=== PATIENT | female | born 1960 | race Caucasian/White ===

== ENCOUNTER 2017-03-31 18:50 | Inpatient (IN) | payer BC ==
--- NOTE | ~2017-03-31 | DS ---
Unit #: [id number] #: [id number] Patient: MARCIA DOMÍNGUEZ [id number] [place] [address] [id number] MR#: [id number] NAME: MARCIA DOMÍNGUEZ ROOM: [facility] Age: 56 Sex: F Admission Date: 03/31/2017 : 1960 Discharge Date: 04/04/2017 Attending Physician: Jaylon Domingo M.D. Primary Care Physician: Jimenez Ferris Jr., M.D. DISCHARGE SUMMARY REASON FOR ADMISSION Opioid dependency, amphetamine abuse, and severe depression, moderate range. DIAGNOSTIC STUDIES PERTINENT LABORATORY DATA: The patient had a routine blood work which showed an elevated glucose of 169. Otherwise normal. CBC was within normal parameters with the exception of the MCH of 27.1. Urine tox was positive for benzos and marijuana. Urinalysis showed 0.2 urobilinogen, but otherwise negative for any aberration. HOSPITAL COURSE The patient was admitted for safety and stabilization for combinations of opioid dependency as well as severe depression. The patient has had vague suicidal ideation upon admission and seems to seem to have improved very quickly. The patient was placed on the COWS protocol for opiate detox and tolerating it well. She had symptoms of a very mild category in terms of aches, pains, upset stomach, poor energy, sleep disturbance, and nothing profound. The patient was on home dose of Zoloft which was increased to 200 mg daily to better acclimate her mood needs. The patient was also given Colace 100 mg twice a day because of constipation complaints. Overall, in the course of hospitalization, the patient improved. She went from being very tearful to very calm, appropriate with good eye contact. She was much more goal and future oriented to be home for her family. She still had significant losses in her life, but she needs to deal with, and she has open to following up with community resources in her home especially for therapy. Information are being provided by social media specialist here in this hospital. The patient tolerated the medication changes well without issues. She had also been prescribed trazodone 100 mg at bedtime as needed for sleep while she was here in the hospital. At the time of discharge, it was felt the patient had reached maximum benefit from inpatient admission. She was not having any suicidal ideation or any active withdrawal symptoms, and she was appropriate for release. DISCHARGE DIAGNOSES 1. Opiate dependence with withdrawal. 2. Other stimulant abuse. 3. Major depressive disorder, recurrent, moderate. DISCHARGE FOLLOWUP Wait to go home to her mother's home. Discontinue medications Zoloft 200 mg daily for depression and anxiety. Also, follow up with plans for the patient to go to communities, psych and therapy resources in her home area. CONDITION AT DISCHARGE Unit #: [id number] #: [id number] Patient: MARCIA DOMÍNGUEZ Improved. PROGNOSIS Moderate (1) ___. DISCHARGE DIET Regular. DISCHARGE ACTIVITY As tolerated with sobriety encouraged. Dictated by... Jaylon Domingo M.D. BRIANNA/zhao TD: 04/04/2017 12:05 JOB #: [id number] DISCHARGE SUMMARY Page 1 of 1 X Jaylon Domingo MD X DISCHARGE SUMMARY
--- NOTE | ~2017-03-31 | HP ---
Unit #: [id number] #: [id number] Patient: MARCIA DOMÍNGUEZ [id number] [place] [address] [id number] I MR#: [id number] NAME: MARCIA DOMÍNGUEZ ROOM: [facility] Age: 56 Sex: F Admission Date: 03/31/2017 : 1960 Attending Physician: Jaylon Domingo M.D. Admitting Physician: Jaylon Domingo M.D. Primary Care Physician: Jimenez Ferris Jr., M.D. HISTORY AND PHYSICAL HISTORY OF PRESENT ILLNESS The patient is a 56-year-old female who states that she is here to detox from opiates. PAST MEDICAL HISTORY Significant for hypertension. PAST SURGICAL HISTORY None. ALLERGIES None. SOCIAL HISTORY Positive for smoking, opiates and methamphetamine. FAMILY HISTORY Noncontributory. REVIEW OF SYSTEMS CONSTITUTIONAL: No fever or chills. HEENT: Denies any sore throat, ear pain or runny nose. CARDIOVASCULAR: Denies chest pain, irregular heart rhythm or palpitations. CHEST: Denies shortness of breath or cough. No hemoptysis. GASTROINTESTINAL: Denies nausea, vomiting, diarrhea or chronic constipation. ENDOCRINE: Denies history of increased thirst or urination. No recent significant weight loss or gain. GENITOURINARY: Denies dysuria, frequency, or hematuria. SKIN: Denies any rashes. HEMATOLOGIC: Denies history of increased bleeding or bruising. MUSCULOSKELETAL: Denies any hot, swollen joints. No generalized muscle pain. NEUROLOGIC: Denies problems with vision or speech. No frequent, severe headaches. No numbness, tingling or weakness in any extremities. Denies loss of bladder or bowel control. CURRENT MEDICATIONS Zoloft 100 mg p.o. daily. PHYSICAL EXAMINATION GENERAL: Alert, oriented, in no acute distress. VITAL SIGNS: Temperature 98, heart rate 80, respirations 16, blood Unit #: [id number] #: [id number] Patient: MARCIA DOMÍNGUEZ pressure 158/91. HEIGHT: 5 feet 6 inches. WEIGHT: 145 pounds. SKIN: Warm and dry without rash or lesion. Tattoos to the right foot. Scab to the left lower extremity. HEENT: Normocephalic. TMs not viewed. Oral and nasal passages clear. Conjunctivae clear. PERRLA. EOMs intact. NECK: Supple without lymphadenopathy or thyromegaly. HEART: Regular rate and rhythm without murmur. LUNGS: Clear. ABDOMEN: Soft, nontender, without masses or hepatosplenomegaly. : Not done. EXTREMITIES: No evidence of cyanosis, clubbing or edema. Moves all without focal deficit. NEUROLOGICAL: Grossly within normal limits. Cranial Nerves: II: Visual garnett are intact. III, IV AND : Extraocular movements are intact. Pupils are equal, round and reactive to light. V: Facial sensation is grossly normal. VII: Facial movements and expression are normal. VIII: Auditory acuity grossly intact. IX, X: Uvula is midline. Phonation is normal. XI: Patient shrugs shoulders and turns head normally. XII: Tongue protrudes in the midline. Sensory and Motor Function: Sensory and motor sensation is grossly normal. Motor: moves all extremities well. Coordination: Gait is normal. Deep Tendon Reflexes: Intact. IMPRESSION Psychiatric admission. RECOMMENDATIONS PSYCHIATRIC: Per psychiatrist. MEDICAL: No contraindications to participate in facility's activities. MEDICAL PROGNOSIS Good. Dictated by... Dee Inman/jarvis TD: 04/01/2017 20:41 JOB #: [id number] Unit #: [id number] #: [id number] Patient: MARCIA DOMÍNGUEZ HISTORY AND PHYSICAL Page 1 of 1 X Ashley Marcano APR X HISTORY AND PHYSICAL
--- NOTE | ~2017-03-31 | PA ---
Unit #: [id number] #: [id number] Patient: MARCIA DOMÍNGUEZ [id number] [place] [address] [id number] I MR#: [id number] NAME: MARCIA DOMÍNGUEZ ROOM: P201 Age: 56 Sex: F Admission Date: 03/31/2017 : 1960 Date of Assessment: Attending Physician: Jaylon Domingo M.D. Admitting Physician: Jaylon Domingo M.D. Primary Care Physician: Jimenez Ferris Jr., M.D. PSYCHIATRIC ASSESSMENT LOCATION [facility] [address], room [address], bed #1. INFORMANTS The patient and chart, both seem reliable. CHIEF COMPLAINT "I gotta stop using drugs per my family." HISTORY OF PRESENT ILLNESS This is a 56-year-old white female with a longstanding history of polysubstance abuse going back 30+ years. The patient's primary drug of choice is opiates with occasional amphetamines, Xanax use varied depending on day to day, but opiates are consistent every day and had been that way for years. The patient has been through subtherapeutic withdrawal in the past, but has never actually been treated for according to her and the patient is very tearful, depressed/various losses in her life including the of her nephew and her brother because of drugs. She reports that she wants to get off the drugs for her family. No active SI now, but she does have history of intermittent SI on a chronic nature. The patient to her room, but was pleasant and cooperative during the interview process. The patient denied any issues with alcohol. Denies any issues of significant withdrawal symptoms in terms of seizures. The patient is currently complaining of issues of aches and pains. Feeling depressed, anxious, tremors, diaphoretic, upset stomach. PAST PSYCHIATRIC HISTORY The patient is on Zoloft for depression by an outpatient psychiatrist in her hometown. Has never been in psychiatric care, which the patient refuses, no history of true suicidal actions, has chronic intermittent SI. No issues with any psychosis. FAMILY HISTORY Significant for widespread chemical dependency issues, issues as noted above. SOCIAL HISTORY The patient is and has no children. Currently living with her mother. She is unemployed, but is living with mom because of the foreclosure. MEDICAL HISTORY Nothing acute or chronic. Unit #: [id number] #: [id number] Patient: MARCIA DOMÍNGUEZ MEDICATION HISTORY Zoloft 150 mg daily by mouth. ALLERGIES No known drug allergies. SUBSTANCE ABUSE HISTORY As noted above. MENTAL STATUS EXAMINATION General appearance; this is a limitedly groomed white female, appears older than stated age. Fairly cooperative, responsive in her process with limited eye contact. Speech was clear and coherent, normal prosody. Mood was depressed with labile affect. Thought process and content were grossly organized and linear. No overt evidence of psychosis. No active SI at this time, but there was evidence of hopelessness. The patient's memory was grossly intact. Associations were normal. Cognitive function was at baseline. Alert and oriented x4. Insight and judgment are poor. ASSETS AND LIABILITIES Assets: Supportive through family and is employed. Liabilities include ongoing substance abuse, living at home with family. No previous exposure to detox process. ADMITTING DIAGNOSES 1. Opioid dependency with withdrawal. 2. Amphetamine abuse. 3. Xanax abuse, major depressive disorder, moderate. PSYCHIATRIC PLAN Continue the patient's admission for safety and stabilization for ongoing issues with detox needs especially from opiates with symptoms as noted above. We will continue the patient on opioid protocol as well as a CIWA protocol given her frequent use of Xanax as the patient's usage is unclear situation. We will also increase Zoloft to 200 mg to better augment her mood issues in terms of treatment. Treatment goals will be resolution of symptoms in a safe controlled environment. Monitor closely her best care. Discharge planning will most likely involve community resources at home area if not residential treatment if applicable. ESTIMATED LENGTH OF STAY Approximately 4 to 5 days depending on the patient's progress and response to treatment. Dictated by... Jaylon Domingo M.D. BRIANNA/nish TD: 04/02/2017 05:52 JOB #: [id number] Unit #: [id number] #: [id number] Patient: MARCIA DOMÍNGUEZ PSYCHIATRIC ASSESSMENT Page 1 of 1 X Jaylon Domingo MD PSYCHIATRIC ASSESSMENT
--- NOTE | ~2017-03-31 | PN ---
Unit #: [id number] #: [id number] Patient: MARCIA DOMÍNGUEZ [id number] [facility] [address] [place] [address] [id number] I MR#: [id number] NAME: MARCIA DOMÍNGUEZ ROOM: P201 Age: 56 Sex: F Admission Date: 03/31/2017 : 1960 Attending Physician: Jaylon Domingo M.D. Admitting Physician: Jaylon Domingo M.D. Primary Care Physician: Jimenez Ferris Jr., M.D. [facility] PROGRESS NOTES DATE 04/03/2017 SUBJECTIVE UPDATE This is a 56-year-old female here with ongoing issues with detox and significant depression. Patient continues to report detox symptoms of being fairly mild, complaining of minor GI upset, sleep disturbance, aches and pains but no tachycardia, no diaphoresis, no tremor today. Her depression is still present with still vague SI, no plan today and she was less tearful. Patient seems to be tolerating medication and is working on ambulation and social interactions more according to staff. MENTAL STATUS EXAMINATION General appearance is a moderately groomed white female improving responsiveness to interview process. Eye contact is still somewhat limited. Patient was less psychomotor agitated today. Speech was clear and coherent. Mood was depressed with constricted affect but improving. Thought process and content were grossly organized and linear. No overt evidence of psychosis. No SI is present but improving. No active plan. Patient's memory was grossly intact. Associations were normal. Cognitive functioning was at baseline. Insight and judgement is limited by improving. RECOMMENDATIONS Will continue patient's admission for ongoing issues with opiate detox and depression. Patient's suicidal ideation is improving but still present. Will need more time for stabilization. May consider augmenting Zoloft with additional medications if necessary. Patient also complained of constipation today which will provide Colace for her to help as a stool softener. Will continue to monitor and encourage increased ambulation, socialization, interaction on the unit and reevaluate in the morning. Dictated by... Jaylon Domingo M.D. BRIANNA/jarvis TD: 04/04/2017 20:00 JOB #: [id number] Unit #: [id number] #: [id number] Patient: MARCIA DOMÍNGUEZ PROGRESS NOTES Page 1 of 1 X Jaylon Domingo MD PROGRESS NOTE
--- NOTE | ~2017-03-31 | PN ---
Unit #: [id number] #: [id number] Patient: MARCIA DOMÍNGUEZ [id number] [place] [address] [id number] I MR#: [id number] NAME: MARCIA DOMÍNGUEZ ROOM: P201 Age: 56 Sex: F Admission Date: 03/31/2017 : 1960 Attending Physician: Jaylon Domingo M.D. Admitting Physician: Jaylon Domingo M.D. Primary Care Physician: Jimenez Ferris Jr., M.D. [facility] PROGRESS NOTES DATE OF SERVICE: 04/02/2017 LOCATION [facility], [address] [place] [address], room #201, bed #1. SUBJECTIVE This is a 56-year-old, white female, here with issues of combination of substance abuse and detox as well as mood disorder issues. The patient continuing to report vague symptoms of detox including aches and pains, upset stomach, fatigue, and extremely depressed mood. The patient again becomes very tearful easily during the interview process with no active SI, but still voicing passive SI with thoughts of being better off . Especially since she is here on mother's day, has been isolative to self, limited in cooperation with groups and activities, but has been compliant with medications. The patient did report sleep last night was improved. MENTAL STATUS EXAMINATION General appearance; this is a limitedly groomed white female, fairly pleasant, moderately cooperative, responsive during the interview process with limited eye contact. Speech was clear and coherent with normal prosody, but brief. Mood was depressed with labile affect. Thought process and content were fairly organized and linear, some hopelessness with passive SI. No HI. The patient's memory was grossly intact. Associations are normal. Cognitive function was at baseline. Alert and oriented x4. Insight and judgment remain poor. RECOMMENDATIONS We will continue the patient's admission for ongoing issues with detox and depression. The patient making some progress slightly today, but we will continue to monitor closely and the patient is tolerating medication changes as well as detox treatment thus far, for further stabilization is required. Dictated by... Jaylon Domingo M.D. SB/modl TD: 04/02/2017 17:29 JOB #: [id number] Unit #: [id number] #: [id number] Patient: MARCIA DOMÍNGUEZ [facility] PROGRESS NOTES Page 1 of 1 X Jaylon Domingo MD PROGRESS NOTE
[~2017-03-31 18:50] MED LIST: ADVAIR 2501 DISK W/D PO; ALBUTEROL17 G2 INH; ALBUTEROL17 GM INH; AUGMENTIN PO; BENZONATATE PO; CIPRO PO; DOXYCYCLINE PO; HYCODAN PO; LEXAPRO PO; NAPROXEN PO; PREDNISONE PO; ZOLOFT100 MG PO
[2017-04-01 13:52] LABS: BASOPHIL# 0.1 X10e3 (0-0.3); BASOPHIL% 0.9 % (0-2.5); EOSINOPHIL# 0.2 X10e3 (0-0.7); EOSINOPHIL% 2.3 % (0.0-7.0); HEMATOCRIT 42.2 % (35.0-45.0); HEMOGLOBIN 13.6 gm/dL (12.0-16.0); LYMPHOCYTE# 2.8 X10e3 (1.0-3.5); LYMPHOCYTE% 40.2 % (17.0-45.0); MEAN CORPUSCULAR HEMOGLOBIN 27.1 PG (28-34); MEAN CORPUSCULAR HGB CONC 32.3 g/dL (30-36); MEAN PLATELET VOLUME 8.6 FL (6.5-11.5); MONOCYTE# 0.5 X10e3 (0-1.0); MONOCYTE% 6.4 % (3.0-12.0); NEUTROPHIL# 3.5 X10e3 (1.5-7.1); NEUTROPHIL% 50.2 % (40-75); PLATELET COUNT 286 X10e3 (140-420); RED BLOOD COUNT 5.02 X10e (3.90-5.30); RED CELL DISTRIBUTION WIDTH 14.1 % (11.0-15.5)
[2017-04-01 14:01] LABS: DIFF IND NO
[2017-04-01 14:05] LABS: ALBUMIN SERUM 3.5 g/dL (3.5-5.0); BILIRUBIN,TOTAL 0.6 mg/dL (0.2-2.0); CALCIUM SERUM 9.2 mg/dL (8.4-10.2); CREATININE SERUM 0.9 mg/dL (0.6-1.4); GLOM FILT RATE Estimated 72.5 mL/min (>60); POTASSIUM 3.7 mmol/L (3.5-5.1)
[2017-04-03 12:45] LABS: URINE APPEARANCE CLEAR; URINE BILIRUBIN NEG (NEG); URINE BLOOD NEG (NEG); URINE COLOR YELLOW; URINE GLUCOSE NEG (NEG); URINE KETONE NEG (NEG); URINE LEUKOCYTE ESTERASE NEG (NEG); URINE NITRATE NEG (NEG); URINE PH 6.5 (5-8); URINE PROTEIN NEG (NEG); URINE SPECIFIC GRAVITY 1.009 (1.003-1.035); URINE UROBILINOGEN 0.2 MG/DL (NEG)
[2017-04-03 14:01] LABS: AMPHETAMINE NEG (NEG); BARBITURATES NEG (NEG); BENZODIAZEPINES POS (NEG); COCAINE NEG (NEG); MARIJUANA POS (NEG); OPIATES NEG (NEG); TRICYCLIC ANTIDEPRESSANTS NEG (NEG); U METHADONE NEG (NEG)
[2017-08-10] MEDS ORDERED: ZYRTEC (20:17)
[2017-08-10] MEDS ORDERED: ZOLOFT (20:17)
== END 2017-04-04 12:25 | disposition home or self-care (01) | DRG 897 ==
LOC: P2S 19:31
PROVIDERS: Psychiatry & Neurology Psychiatry
PROC: HZ2ZZZZ Detoxification Services for Substance Abuse Treatment (ICD-10-PCS; principal; 2017-03-31)
DX: F11.23 Opioid dependence with withdrawal (principal); F33.1 Major depressive disorder, recurrent, moderate; I10 Essential (primary) hypertension; F15.10 Other stimulant abuse, uncomplicated; F13.10 Sedative, hypnotic or anxiolytic abuse, uncomplicated; Z81.4 Family history of other substance abuse and dependence; F17.210 Nicotine dependence, cigarettes, uncomplicated
CPT/HCPCS: 80053; 80307; 81003; 85025; 86592